=== PATIENT | male | born 1955 | race Hispanic/Latino ===

== ENCOUNTER 2017-05-14 00:22 | Inpatient (IN) | payer OTHER ==
[2017-05-14] MEDS ORDERED: NACL 0.9% 500 ML 500 ML IV ONE (01:52)
[2017-05-14] MEDS ORDERED: HEPARIN 10,000 UNITS/10 ML IV ONE ×2 (01:52→12:03)
[2017-05-14] MEDS ORDERED: SUBLIMAZE IV ONE (01:52)
--- NOTE | 2017-05-14 01:54 | Emergency Department Report ---
ED Lower Extremity HPI - General Chief Complaint: Extremity Injury, Lower Stated Complaint: NO PULSE LEFT LEG Time Seen by Provider: 05/14/17 01:30 Source: patient, family, EMS (ems notes not available at time of chart dictation), RN notes reviewed Mode of arrival: Stretcher Limitations: Physical Limitation - History of Present Illness Initial Comments: This is a 61-year-old male. The patient is previously known to this provider. Primary care DrAlex: Galindo Patient had a mechanical fall 3 weeks ago, and since then has not been walking around much. He has a left lower extremity immobilization boot. Presents to the ER with a complaint of left pain and swelling of the lower extremity. Was seen at an outpatient [place] clinic and sent to the ER to exclude arterial insufficiency. The pain is sharp and burning, increases with palpation and range of motion decreases with rest. Patient and son reports that his foot feels cool, he denies bladder or bowel retention or incontinence, he denies headache, neck pain, chest pain, abdominal pain, shortness of breath, hematemesis, bright red blood per rectum. MD Complaint: leg injury, ankle injury, fall -: Gradual Injury: Leg: Left, Knee: Left, Ankle: Left, Foot: Left, Toes: Left Type of Injury: other Place: home Severity: moderate Improves With: rest Worsens With: weight bearing, movement, palpation Context: fall, direct blow Associated Symptoms: swelling, unable to bear weight. denies: tingling - Related Data Home Medications Medication Instructions Recorded Confirmed Last Taken Gabapentin [Neurontin] 300 mg PO BID 05/14/17 05/14/17 Unknown Ibuprofen [Motrin 600 MG tab] 600 mg PO Q8H PRN 05/14/17 05/14/17 Unknown metFORMIN [Glucophage] 500 mg PO BID 05/14/17 05/14/17 Unknown Previous Rx's Medication Instructions Recorded Last Taken Type Apixaban [Eliquis] 5 mg PO BID #360 tablet 05/16/17 Unknown Rx Apixaban [Eliquis] 10 mg PO Q12HR #14 tablet 05/16/17 Unknown Rx Gabapentin [Neurontin] 300 mg PO BID #60 capsule 05/16/17 Unknown Rx Levofloxacin [Levaquin TAB] 500 mg PO QDAY #10 tablet 05/16/17 Unknown Rx metFORMIN [Glucophage] 500 mg PO BIDDIAB #60 tablet 05/16/17 Unknown Rx Allergies Allergy/AdvReac Type Severity Reaction Status Date / Time codeine Allergy Unknown Verified 05/14/17 00:42 ED Review of Systems ROS: Stated complaint: NO PULSE LEFT LEG Other details as noted in HPI Comment: All other systems reviewed and negative ED Past Medical Hx - Past Medical History Previous Medical History?: Yes Hx Hypertension: Yes Hx Diabetes: Yes - Social History Smoking Status: Never Smoker Substance Use Type: Alcohol - Medications Home Medications: Home Medications Medication Instructions Recorded Confirmed Last Taken Type Gabapentin [Neurontin] 300 mg PO BID 05/14/17 05/14/17 Unknown History Ibuprofen [Motrin 600 MG tab] 600 mg PO Q8H PRN 05/14/17 05/14/17 Unknown History metFORMIN [Glucophage] 500 mg PO BID 05/14/17 05/14/17 Unknown History Apixaban [Eliquis] 5 mg PO BID #360 tablet 05/16/17 Unknown Rx Apixaban [Eliquis] 10 mg PO Q12HR #14 tablet 05/16/17 Unknown Rx Gabapentin [Neurontin] 300 mg PO BID #60 capsule 05/16/17 Unknown Rx Levofloxacin [Levaquin TAB] 500 mg PO QDAY #10 tablet 05/16/17 Unknown Rx metFORMIN [Glucophage] 500 mg PO BIDDIAB #60 tablet 05/16/17 Unknown Rx ED Physical Exam - General Limitations: Physical Limitation General appearance: alert, in no apparent distress - Head Head exam: Present: atraumatic, normocephalic - Eye Eye exam: Present: normal appearance, EOMI. Absent: nystagmus - ENT ENT exam: Present: normal exam, normal orophraynx, mucous membranes moist, normal external ear exam - Neck Neck exam: Present: normal inspection, full ROM - Respiratory Respiratory exam: Present: normal lung sounds bilaterally. Absent: respiratory distress - Cardiovascular Cardiovascular Exam: Present: regular rate, normal rhythm, normal heart sounds. Absent: bradycardia, tachycardia, irregular rhythm, systolic murmur, diastolic murmur, rubs, gallop - GI/Abdominal GI/Abdominal exam: Present: soft, normal bowel sounds. Absent: distended, tenderness, guarding, rebound, rigid, pulsatile mass - Rectal Rectal exam: Present: deferred - Extremities Exam Extremities exam: Present: full ROM, tenderness (the left lower extremity is swollen and tender. The compartments are soft. There is mild pain with passive range of motion.), pedal edema, calf tenderness, other (2+ pulses noted in the bilateral upper and lower extremities. 2+ pulses noted in the left dorsalis pedis, left femoral distribution.). Absent: joint swelling - Back Exam Back exam: Present: normal inspection, full ROM. Absent: paraspinal tenderness , vertebral tenderness - Neurological Exam Neurological exam: Present: alert, oriented X3, CN II-XII intact, other ( Extraocular movements intact. Tongue midline. No facial droop. Facial sensation intact to light touch in the V1, V2, V3 distribution bilaterally. 5 and 5 strength in 4 extremities.. Sensation is intact to light touch in 4 extremities.). Absent: motor sensory deficit - Psychiatric Psychiatric exam: Present: normal affect, normal mood - Skin Skin exam: Present: warm, dry, intact, normal color. Absent: rash ED Course Vital Signs 05/14/17 05/14/17 05/14/17 00:51 01:00 02:00 Temperature 98 F Pulse Rate 98 H 95 H 95 H Respiratory 18 21 26 H Rate Blood Pressure 132/78 149/82 Blood Pressure 145/68 [Left] O2 Sat by Pulse 98 96 Oximetry 05/14/17 05/14/17 05/14/17 03:00 04:00 05:00 Temperature Pulse Rate 94 H 99 H 92 H Respiratory 12 16 23 Rate Blood Pressure 142/85 147/104 124/76 Blood Pressure [Left] O2 Sat by Pulse 98 92 95 Oximetry 05/14/17 05/14/17 05/14/17 07:32 07:51 08:00 Temperature 98.4 F Pulse Rate 95 H 91 H 98 H Respiratory 19 17 17 Rate Blood Pressure 138/68 131/74 Blood Pressure 113/74 [Left] O2 Sat by Pulse 94 95 95 Oximetry 05/14/17 05/14/17 05/14/17 08:11 09:03 09:11 Temperature Pulse Rate 93 H 89 100 H Respiratory 20 17 15 Rate Blood Pressure 131/74 131/74 131/74 Blood Pressure [Left] O2 Sat by Pulse 90 97 89 Oximetry 05/14/17 05/14/17 05/14/17 09:21 09:30 09:41 Temperature Pulse Rate 93 H 91 H 90 Respiratory 22 20 22 Rate Blood Pressure 131/74 117/61 131/74 Blood Pressure [Left] O2 Sat by Pulse 94 94 94 Oximetry 05/14/17 05/14/17 05/14/17 09:51 10:00 10:11 Temperature Pulse Rate 90 88 91 H Respiratory 15 17 18 Rate Blood Pressure 131/74 124/62 124/62 Blood Pressure [Left] O2 Sat by Pulse 94 94 94 Oximetry 05/14/17 05/14/17 05/14/17 10:21 10:30 10:41 Temperature Pulse Rate 92 H 95 H 93 H Respiratory 19 24 20 Rate Blood Pressure 124/62 123/59 123/59 Blood Pressure [Left] O2 Sat by Pulse 93 95 92 Oximetry 05/14/17 05/14/17 05/14/17 10:51 11:00 11:11 Temperature Pulse Rate 92 H 92 H 90 Respiratory 21 20 21 Rate Blood Pressure 123/59 121/64 121/64 Blood Pressure [Left] O2 Sat by Pulse 92 93 94 Oximetry 05/14/17 05/14/17 05/14/17 11:21 11:31 11:41 Temperature Pulse Rate 98 H 98 H 93 H Respiratory 18 20 19 Rate Blood Pressure 123/59 123/59 123/59 Blood Pressure [Left] O2 Sat by Pulse 95 96 94 Oximetry 05/14/17 05/14/17 05/14/17 11:51 12:00 12:11 Temperature Pulse Rate 102 H 94 H 95 H Respiratory 20 23 20 Rate Blood Pressure 123/59 131/69 131/69 Blood Pressure [Left] O2 Sat by Pulse 93 96 92 Oximetry 05/14/17 05/14/17 05/14/17 12:21 12:30 12:41 Temperature Pulse Rate 93 H 91 H 101 H Respiratory 22 18 21 Rate Blood Pressure 131/69 128/74 128/74 Blood Pressure [Left] O2 Sat by Pulse 95 96 94 Oximetry 05/14/17 05/14/17 05/14/17 12:51 13:01 13:11 Temperature Pulse Rate 99 H Respiratory 21 Rate Blood Pressure 128/74 126/67 126/67 Blood Pressure [Left] O2 Sat by Pulse 96 96 92 Oximetry 05/14/17 05/14/17 05/14/17 13:21 13:30 13:41 Temperature Pulse Rate 99 H 103 H 100 H Respiratory 20 18 17 Rate Blood Pressure 126/67 126/77 126/77 Blood Pressure [Left] O2 Sat by Pulse 92 94 Oximetry 04/03/18 04/03/18 04/03/18 13:51 14:00 14:11 Temperature Pulse Rate 95 H 94 H 96 H Respiratory 20 19 20 Rate Blood Pressure 126/77 126/77 139/72 Blood Pressure [Left] O2 Sat by Pulse Oximetry 05/14/17 05/14/17 05/14/17 14:21 14:30 14:41 Temperature Pulse Rate 92 H 95 H 94 H Respiratory 20 23 20 Rate Blood Pressure 139/72 130/74 130/74 Blood Pressure [Left] O2 Sat by Pulse Oximetry 05/14/17 05/14/17 05/14/17 14:51 15:00 15:11 Temperature Pulse Rate 93 H 93 H 94 H Respiratory 16 19 20 Rate Blood Pressure 130/74 137/75 137/75 Blood Pressure [Left] O2 Sat by Pulse Oximetry 05/14/17 05/14/17 05/14/17 15:21 15:30 15:40 Temperature Pulse Rate 93 H 92 H 91 H Respiratory 19 19 20 Rate Blood Pressure 137/75 126/71 126/71 Blood Pressure [Left] O2 Sat by Pulse Oximetry 05/14/17 05/14/17 05/14/17 15:50 16:00 16:10 Temperature Pulse Rate 96 H 90 92 H Respiratory 21 19 38 H Rate Blood Pressure 139/68 126/71 Blood Pressure [Left] O2 Sat by Pulse Oximetry 05/14/17 16:20 Temperature Pulse Rate 93 H Respiratory 16 Rate Blood Pressure 126/71 Blood Pressure [Left] O2 Sat by Pulse Oximetry - Reevaluation(s) Reevaluation #1: 05/14/17 03:51 Differential diagnosis, including but not limited to, DVT, Albert's cyst, compartment syndrome, myositis Assessment and plan: 61-year-old male with left lower extremity pain and swelling, pulses are appreciated on my physical exam as well as through Doppler interrogation. Given recent history of fall, and mobility, boot, I highly suspect a DVT. In addition, the patient may have an extensive clot burden including the iliac veins and possibly part of the IVC. He has no contraindication to anticoagulation. He has verbally consented to systemic anticoagulation. Risks , benefits, alternatives have been discussed. Has no chest pain or shortness of breath. Patient arrived after 5:00 PM, and we are therefore unable to obtain lower extremity DVT study. CT scan of the abdomen and pelvis is pending with left lower extremity runoff. I have discussed this with Dr. Bishop the [place] physician on-call, and she does authorized the patient to be admitted to this hospital if he requires it. Reevaluation #2: 05/14/17 05:45 Care is transferred to the oncoming ER physician, Dr. West Springer to follow up on CT scans. A lower extremity DVT study has also been ordered. Disposition as per imaging, at this point time, would admit patient to the hospital once initial diagnostics have resulted. ED Lower Extremity MDM - Lab Data Result diagrams: 05/16/17 10:18 05/16/17 10:18 Vital Signs 05/14/17 05/14/17 05/14/17 00:51 01:00 02:00 Temperature 98 F Pulse Rate 98 H 95 H 95 H Respiratory 18 21 26 H Rate Blood Pressure 132/78 149/82 Blood Pressure 145/68 [Left] O2 Sat by Pulse 98 96 Oximetry 05/14/17 05/14/17 03:00 04:00 Temperature Pulse Rate 94 H 99 H Respiratory 12 16 Rate Blood Pressure 142/85 147/104 Blood Pressure [Left] O2 Sat by Pulse 98 92 Oximetry Lab Results 05/14/17 05/14/17 05/14/17 Range/Units 02:02 02:02 02:02 WBC 16.4 H (4.5-11.0) K/mm3 RBC 3.81 (3.65-5.03) M/mm3 Hgb 10.3 L (11.8-15.2) gm/dl Hct 31.5 L (35.5-45.6) % MCV 83 L (84-94) fl MCH 27 L (28-32) pg MCHC 33 (32-34) % RDW 16.1 H (13.2-15.2) % Plt Count 602 H (140-440) K/mm3 Lymph % (Auto) 9.0 L (13.4-35.0) % [place] % (Auto) 7.2 (0.0-7.3) % Eos % (Auto) 0.1 (0.0-4.3) % Baso % (Auto) 0.6 (0.0-1.8) % Lymph # 1.5 (1.2-5.4) K/mm3 [place] # 1.2 H (0.0-0.8) K/mm3 Eos # 0.0 (0.0-0.4) K/mm3 Baso # 0.1 (0.0-0.1) K/mm3 Seg Neutrophils % 83.1 H (40.0-70.0) % Seg Neutrophils # 13.6 H (1.8-7.7) K/mm3 PT 14.5 (12.2-14.9) Sec. INR 1.07 (0.87-1.13) APTT 33.9 (24.2-36.6) Sec. D-Dimer 3031.44 H (0-234) ng/mlDDU Sodium (137-145) mmol/L Potassium (3.6-5.0) mmol/L Chloride (98-107) mmol/L Carbon Dioxide (22-30) mmol/L Anion Gap mmol/L BUN (9-20) mg/dL Creatinine (0.8-1.5) mg/dL Estimated GFR ml/min BUN/Creatinine Ratio % Glucose (75-100) mg/dL Lactic Acid 1.90 (0.7-2.0) mmol/L Calcium (8.4-10.2) mg/dL Total Bilirubin (0.1-1.2) mg/dL AST (5-40) units/L ALT (7-56) units/L Alkaline Phosphatase (35-129) units/L Total Creatine Kinase (55-170) units/L Total Protein (6.3-8.2) g/dL Albumin (3.9-5) g/dL Albumin/Globulin Ratio % 05/14/ Range/Units 02:02 WBC (4.5-11.0) K/mm3 RBC (3.65-5.03) M/mm3 Hgb (11.8-15.2) gm/dl Hct (35.5-45.6) % MCV (84-94) fl MCH (28-32) pg MCHC (32-34) % RDW (13.2-15.2) % Plt Count (140-440) K/mm3 Lymph % (Auto) (13.4-35.0) % [place] % (Auto) (0.0-7.3) % Eos % (Auto) (0.0-4.3) % Baso % (Auto) (0.0-1.8) % Lymph # (1.2-5.4) K/mm3 [place] # (0.0-0.8) K/mm3 Eos # (0.0-0.4) K/mm3 Baso # (0.0-0.1) K/mm3 Seg Neutrophils % (40.0-70.0) % Seg Neutrophils # (1.8-7.7) K/mm3 PT (12.2-14.9) Sec. INR (0.87-1.13) APTT (24.2-36.6) Sec. D-Dimer (0-234) ng/mlDDU Sodium 130 L (137-145) mmol/L Potassium 4.8 (3.6-5.0) mmol/L Chloride 88.7 L (98-107) mmol/L Carbon Dioxide 23 (22-30) mmol/L Anion Gap 23 mmol/L BUN 18 (9-20) mg/dL Creatinine 0.6 L (0.8-1.5) mg/dL Estimated GFR > 60 ml/min BUN/Creatinine Ratio 30 % Glucose 164 H (75-100) mg/dL Lactic Acid (0.7-2.0) mmol/L Calcium 8.5 (8.4-10.2) mg/dL Total Bilirubin 0.60 (0.1-1.2) mg/dL AST 45 H (5-40) units/L ALT 62 H (7-56) units/L Alkaline Phosphatase 164 H (35-129) units/L Total Creatine Kinase 324 H (55-170) units/L Total Protein 7.4 (6.3-8.2) g/dL Albumin 2.7 L (3.9-5) g/dL Albumin/Globulin Ratio 0.6 % - Radiology Data Radiology results: report reviewed, image reviewed X-ray of the left femur, left knee, left tibia/fibula show no fracture or dislocation, soft tissue swelling is noted. Critical care attestation.: If time is entered above; I have spent that time in minutes in the direct care of this critically ill patient, excluding procedure time. ED Disposition Clinical Impression: Left leg pain, Inability to ambulate due to multiple joints Disposition: OP ADMIT IP TO THIS HOSP Is pt being admited?: Yes Condition: Stable
[2017-05-14 02:29] LABS: Basophils # (Auto) 0.1 K/mm3 (0.0-0.1); Basophils % (Auto) 0.6 % (0.0-1.8); Eosinophils % (Auto) 0.1 % (0.0-4.3); Hematocrit 31.5 % (35.5-45.6); Hemoglobin 10.3 gm/dl (11.8-15.2); Lymphocytes # (Auto) 1.5 K/mm3 (1.2-5.4); Mean Corpuscular HGB Conc 33 % (32-34); Mean Corpuscular Hemoglobin 27 pg (28-32); Mean Corpuscular Volume 83 fl (84-94); Monocytes # (Auto) 1.2 K/mm3 (0.0-0.8); Monocytes % (Auto) 7.2 % (0.0-7.3); Platelet Count 602 K/mm3 (140-440); Red Blood Count 3.81 M/mm3 (3.65-5.03); Red Cell Distribution Width 16.1 % (13.2-15.2)
[2017-05-14 02:45] LABS: INR 1.07 (0.87-1.13)
[2017-05-14 03:01] LABS: Partial Thromboplastin Time 33.9 Sec. (24.2-36.6)
--- NOTE | 2017-05-14 03:12 | XRay Report ---
FINAL REPORT PROCEDURE: XR TIBIA FIBULA 1V LT TECHNIQUE: LEFT tibia and fibula radiographs, AP and lateral views. CPT 90627 HISTORY: left leg pain COMPARISON: No prior studies are available for comparison. FINDINGS: Fracture (s) and/or Dislocation(s): None . 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 Soft tissues: There is generalized soft tissue swelling.. Bone mineralization: Normal . Foreign bodies: None . IMPRESSION: There is no acute bony abnormality.. 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 There is generalized soft tissue swelling..
--- NOTE | 2017-05-14 03:34 | XRay Report ---
FINAL REPORT PROCEDURE: XR FEMUR 1V LT TECHNIQUE: LEFT femur radiographs, AP and lateral views. HISTORY: left leg pain COMPARISON: No prior studies are available for comparison. FINDINGS: Fracture (s) and/or Dislocation(s): None . Joint space(s): There is degenerative arthrosis of the knee and hip joints.. Soft tissues: Normal . Bone mineralization: Normal . Foreign bodies: None . IMPRESSION: There is no fracture.
[2017-05-14 04:05] LABS: Alanine Aminotransferase 62 units/L (7-56); Albumin 2.7 g/dL (3.9-5); BUN/Creatinine Ratio 30; Blood Urea Nitrogen 18 mg/dL (9-20); Calcium 8.5 mg/dL (8.4-10.2); Hemolysis Index 19
[2017-05-14] MEDS ORDERED: HEPARIN/ 0.45% NACL-25,000 UNIT/500 ML 25,000 UNIT/500 ML BAG IV SCH (05:00)
[2017-05-14] MEDS ORDERED: DILAUDID IV ONE (05:00)
[2017-05-14] MEDS ORDERED: NACL ONE (06:35)
--- NOTE | 2017-05-14 06:49 | Cat Scan Report ---
FINAL REPORT PROCEDURE: CT ABDOMEN PELVIS W CON TECHNIQUE: Computerized axial tomography of the abdomen and pelvis was performed after the IV injection of iodinated nonionic contrast. HISTORY: lle pain and swelling, ? ivc thrombosis COMPARISON: No prior studies are available for comparison. FINDINGS: Visualized lower thorax: There is atelectasis at the lung bases.. Liver: Normal size and attenuation. Spleen: Normal size and attenuation. Gallbladder and biliary system: Normal. Pancreas: Normal. Adrenals: Normal. Kidneys: Normal. GI tract: There is moderate stool in the colon. There is no obstruction, fecal impaction or colitis. The stomach, small bowel and appendix are normal.. Lymph nodes and mesentery: Normal. Vasculature: There is calcified plaque in the abdominal aorta. There is no aneurysm.. Bladder: Normal. Reproductive organs: Normal. Peritoneum: There is no ascites, free air, abscess or adenopathy.. Musculoskeletal structures: No significant abnormality. Other: There is no specific evidence of IVC thrombosis.. IMPRESSION: There is moderate stool in the colon. There is no obstruction, fecal impaction or colitis. The stomach, small bowel and appendix are normal.. There is calcified plaque in the abdominal aorta. There is no aneurysm.. There is no ascites, free air, abscess or adenopathy.. There is no specific evidence of IVC thrombosis..
--- NOTE | 2017-05-14 07:08 | Cat Scan Report ---
FINAL REPORT PROCEDURE: CT LOWER EXTREMITY LT W CON TECHNIQUE: Computerized axial tomography of the LEFT leg was performed after the IV injection of iodinated nonionic contrast. HISTORY: pain swelling ? dvt COMPARISON: No prior studies are available for comparison. FINDINGS: Bony structures including marrow spaces: Normal. Neurovascular structures: The arteries are patent and normal in caliber. The deep venous structures are patent. There is superficial thrombophlebitis in the medial calf. Soft tissues: There is a subcutaneous edema of the leg consistent with cellulitis. There is no mass or abscess. Joint space: Normal. Abnormal enhancement: None. IMPRESSION: There is no acute bony abnormality. The arteries are patent and normal in caliber. The deep venous structures are patent. There is superficial thrombophlebitis in the medial calf. There is a subcutaneous edema of the leg consistent with cellulitis. There is no mass or abscess.
[2017-05-14] MEDS ORDERED: SODIUM CHLORIDE FLUSH SYRINGE 10 ML IV PRN (12:48)
[2017-05-14] MEDS ORDERED: D50W (25GM) Syringe IV PRN (12:48)
[2017-05-14] MEDS ORDERED: ZOFRAN IV PRN (12:48)
[2017-05-14] MEDS ORDERED: VANCOMYCIN VIAL IV ONE (12:48)
--- NOTE | 2017-05-14 12:58 | History and Physical Report ---
History of Present Illness Date of examination: 05/14/17 Date of admission: 05/14/17 Chief complaint: Extremity Injury, Lower History of present illness: Patient had a mechanical fall 3 weeks ago, and since then has not been walking around much. He had a left lower extremity immobilization boot. Pt. presents to the ER with a complaint of left pain and swelling of the lower extremity. He was seen at an outpatient [place] [facility] and sent to the ER to exclude arterial insufficiency. The pain is sharp and burning, increases with palpation and range of motion decreases with rest. Patient and son reports, per ER physician, that his foot feels cool. He denies bladder or bowel retention or incontinence, he denies headache, neck pain, chest pain, abdominal pain, shortness of breath, hematemesis, bright red blood per rectum. Past History Past Medical History: diabetes, hypertension Past Surgical History: No surgical history Social history: no significant social history Family history: no significant family history Medications and Allergies Allergies Allergy/AdvReac Type Severity Reaction Status Date / Time codeine Allergy Unknown Verified 05/14/17 00:42 Home Medications Medication Instructions Recorded Confirmed Last Taken Type Gabapentin [Neurontin] 300 mg PO BID 05/14/17 05/14/17 Unknown History Ibuprofen [Motrin] 600 mg PO Q8H PRN 05/14/17 05/14/17 Unknown History metFORMIN [Glucophage] 500 mg PO BID 05/14/17 05/14/17 Unknown History Active Meds: Active Medications Acetaminophen (Tylenol) 650 mg PO Q4H PRN PRN Reason: Pain MILD(1-3)/Fever >100.5/DEE Dextrose (D50w (25gm) Syringe) 50 ml IV PRN PRN PRN Reason: Hypoglycemia Sodium Chloride (Nacl 0.9% 1000 Ml) 1,000 mls @ 75 mls/hr IV DIRECT MOR Piperacillin Sod/Tazobactam Sod (Zosyn/Ns 4.5gm/100ml) 4.5 gm in 100 mls @ 200 mls/hr IV Q8HR MOR; Protocol Ondansetron HCl (Zofran) 4 mg IV Q8H PRN PRN Reason: Nausea And Vomiting Sodium Chloride (Sodium Chloride Flush Syringe 10 Ml) 10 ml IV BID MOR Sodium Chloride (Sodium Chloride Flush Syringe 10 Ml) 10 ml IV PRN PRN PRN Reason: LINE FLUSH Vancomycin HCl (Vancomycin Pharmacy To Dose) 1 each IV PKCONSULT MOR Vancomycin HCl (Vancomycin Vial) 2,000 mg 20 mg/kg (2000 mg) IV ONCE ONE; Protocol Stop: 05/14/17 12:49 Review of Systems All systems: negative Exam - Constitutional Vitals: Temp Pulse Resp BP Pulse Ox 98.4 F 95 H 19 113/74 94 05/14/17 07:32 05/14/17 07:32 05/14/17 07:32 05/14/17 07:32 05/14/17 07:32 General appearance: Present: no acute distress, well-nourished - EENT Eyes: Present: PERRL ENT: hearing intact, clear oral mucosa - Neck Neck: Present: supple, normal ROM - Respiratory Respiratory effort: normal Respiratory: bilateral: CTA - Cardiovascular Heart Sounds: Present: S1 & S2. Absent: rub, click - Extremities Extremities: pulses symmetrical Extremity abnormal: edema (Left lower edematous and dorsum of left foot erythematous) Peripheral Pulses: within normal limits - Abdominal General gastrointestinal: Present: soft, non-tender, non-distended, normal bowel sounds Male genitourinary: Present: normal - Integumentary Integumentary: Present: clear, warm, dry - Musculoskeletal Musculoskeletal: gait normal, strength equal bilaterally - Psychiatric Psychiatric: appropriate mood/affect, intact judgment & insight - Neurologic Neurologic: CNII-XII intact, moves all extremities Results - Labs CBC & Chem 7: 05/14/17 02:02 05/14/17 02:02 Labs: Laboratory Last Values WBC 16.4 K/mm3 (4.5-11.0) H 05/14/17 02:02 RBC 3.81 M/mm3 (3.65-5.03) 05/14/17 02:02 Hgb 10.3 gm/dl (11.8-15.2) L 05/14/17 02:02 Hct 31.5 % (35.5-45.6) L 05/14/17 02:02 MCV 83 fl (84-94) L 05/14/17 02:02 MCH 27 pg (28-32) L 05/14/17 02:02 MCHC 33 % (32-34) 05/14/17 02:02 RDW 16.1 % (13.2-15.2) H 05/14/17 02:02 Plt Count 602 K/mm3 (140-440) H 05/14/17 02:02 Lymph % (Auto) 9.0 % (13.4-35.0) L 05/14/17 02:02 [place] % (Auto) 7.2 % (0.0-7.3) 05/14/17 02:02 Eos % (Auto) 0.1 % (0.0-4.3) 05/14/17 02:02 Baso % (Auto) 0.6 % (0.0-1.8) 05/14/17 02:02 Lymph # 1.5 K/mm3 (1.2-5.4) 05/14/17 02:02 [place] # 1.2 K/mm3 (0.0-0.8) H 05/14/17 02:02 Eos # 0.0 K/mm3 (0.0-0.4) 05/14/17 02:02 Baso # 0.1 K/mm3 (0.0-0.1) 05/14/17 02:02 Seg Neutrophils % 83.1 % (40.0-70.0) H 05/14/17 02:02 Seg Neutrophils # 13.6 K/mm3 (1.8-7.7) H 05/14/17 02:02 PT 14.5 Sec. (12.2-14.9) 05/14/17 02:02 INR 1.07 (0.87-1.13) 05/14/17 02:02 APTT 33.9 Sec. (24.2-36.6) 05/14/17 02:02 D-Dimer 3031.44 ng/mlDDU (0-234) H 05/14/17 02:02 Heparin Anti-Xa Level < 0.10 U.I./ml (0.3-0.7) L 05/14/17 10:46 Sodium 130 mmol/L (137-145) L 05/14/17 02:02 Potassium 4.8 mmol/L (3.6-5.0) 05/14/17 02:02 Chloride 88.7 mmol/L (98-107) L 05/14/17 02:02 Carbon Dioxide 23 mmol/L (22-30) 05/14/17 02:02 Anion Gap 23 mmol/L 04/03/18 02:02 BUN 18 mg/dL (9-20) 05/14/17 02:02 Creatinine 0.6 mg/dL (0.8-1.5) L 05/14/17 02:02 Estimated GFR > 60 ml/min 05/14/17 02:02 BUN/Creatinine Ratio 30 % 05/14/17 02:02 Glucose 164 mg/dL (75-100) H 05/14/17 02:02 Lactic Acid 1.90 mmol/L (0.7-2.0) 05/14/17 02:02 Calcium 8.5 mg/dL (8.4-10.2) 05/14/17 02:02 Total Bilirubin 0.60 mg/dL (0.1-1.2) 05/14/17 02:02 AST 45 units/L (5-40) H 05/14/17 02:02 ALT 62 units/L (7-56) H 05/14/17 02:02 Alkaline Phosphatase 164 units/L (35-129) H 05/14/17 02:02 Total Creatine Kinase 324 units/L (55-170) H 05/14/17 02:02 Total Protein 7.4 g/dL (6.3-8.2) 05/14/17 02:02 Albumin 2.7 g/dL (3.9-5) L 05/14/17 02:02 Albumin/Globulin Ratio 0.6 % 05/14/17 02:02 Assessment and Plan Assessment and plan: Sepsis. Present on admission. Continue IV antibiotics and follow-up cultures. Etiology secondary to left lower extremity cellulitis. Left lower extremity cellulitis. As above. Consider ID consultation. Left lower extremity superficial thrombophlebitis. Continue supportive care. DVT prophylaxis. Lovenox daily. Diabetes mellitus type 2. Continue Accu-Cheks and sliding scale insulin. Hypertension. Resume anti-hypertensive medications. Morbid obesity. Patient will be counseled on diet and exercise.
[2017-05-14] MEDS ORDERED: VANCOMYCIN PHARMACY TO DOSE IV SCH (13:00)
[2017-05-14] MEDS ORDERED: VANCOMYCIN 1,750 MG in NACL 0.9% 500 ML 500 ML IV ONE (14:00)
[2017-05-14] MEDS ORDERED: VANCOMYCIN 2,000 MG in NACL 0.9% 500 ML 500 ML IV ONE (14:00)
[2017-05-14] MEDS ORDERED: HumuLIN R ONE (16:18)
[2017-05-14] MEDS: HumuLIN R SUB-Q SCH ×2 (16:24→23:28)
[2017-05-14] MEDS: NACL 0.9% 1000 ML 1,000 ML IV SCH (17:01)
[2017-05-14] MEDS: TYLENOL PO PRN (17:32)
[2017-05-14] MEDS: ZOSYN/NS 4.5GM/100ML 4.5 GM/100 ML VIAL IV SCH (22:50)
[2017-05-15] MEDS: SODIUM CHLORIDE FLUSH SYRINGE 10 ML IV SCH ×3 (01:50→23:00)
[2017-05-15] MEDS: ZOSYN/NS 4.5GM/100ML 4.5 GM/100 ML VIAL IV SCH ×4 (01:52→14:09)
[2017-05-15] MEDS: MORPHINE IV PRN ×4 (01:54→19:03)
[2017-05-15] MEDS ORDERED: VANCOMYCIN 1,250 MG in NACL 0.9% 250ML 250 ML IV SCH (02:00)
[2017-05-15] MEDS ORDERED: VANCOMYCIN 1,500 MG in NACL 0.9% 500 ML 500 ML IV SCH (02:00)
[2017-05-15 05:26] LABS: Basophils % (Auto) 0.3 % (0.0-1.8); Eosinophils % (Auto) 0.3 % (0.0-4.3); Hematocrit 28.5 % (35.5-45.6); Hemoglobin 9.6 gm/dl (11.8-15.2); Lymphocytes # (Auto) 1.5 K/mm3 (1.2-5.4); Lymphocytes % (Auto) 8.8 % (13.4-35.0); Mean Corpuscular HGB Conc 34 % (32-34); Mean Corpuscular Hemoglobin 27 pg (28-32); Mean Corpuscular Volume 81 fl (84-94); Monocytes # (Auto) 1.1 K/mm3 (0.0-0.8); Monocytes % (Auto) 6.5 % (0.0-7.3); Platelet Count 596 K/mm3 (140-440); Red Blood Count 3.52 M/mm3 (3.65-5.03); Red Cell Distribution Width 16.1 % (13.2-15.2)
[2017-05-15 05:35] LABS: BUN/Creatinine Ratio 22; Blood Urea Nitrogen 11 mg/dL (9-20); Calcium 8.7 mg/dL (8.4-10.2); Hemolysis Index 11
[2017-05-15] MEDS: HumuLIN R SUB-Q SCH ×4 (09:12→22:58)
[2017-05-15] MEDS: NACL 0.9% 1000 ML 1,000 ML IV SCH (09:39)
[2017-05-15] MEDS ORDERED: LOVENOX SUB-Q SCH ×2 (10:00)
--- NOTE | 2017-05-15 10:41 | Progress Note ---
Assessment and Plan Assessment and plan: Sepsis. Present on admission. Continue IV antibiotics and follow-up cultures. Etiology secondary to left lower extremity cellulitis. Left lower extremity cellulitis. As above. Erythema and edema have almost completely resolved. Left lower extremity superficial thrombophlebitis. Continue supportive care. Right upper sternal swelling. Patient reports recent trauma with the fall and an evaluation at [facility] with a CT scan that was found to be negative. Check ultrasound rule out DVT. DVT prophylaxis. Lovenox daily. Diabetes mellitus type 2. Continue Accu-Cheks and sliding scale insulin. Hypertension. Resume anti-hypertensive medications. Morbid obesity. Patient will be counseled on diet and exercise. Disposition. Anticipate discharge in a.m. if blood cultures are negative. History Interval history: No new issues overnight. Patient complains of right upper extremity pain from previous trauma that was evaluated at [facility] with a CT scan that was found to be negative per patient. Hospitalist Physical - Constitutional Vitals: Temp Pulse Resp BP Pulse Ox 98.5 F 84 20 115/62 92 05/15/17 08:40 05/15/17 08:40 05/15/17 08:40 05/15/17 08:40 05/15/17 08:40 General appearance: Present: no acute distress, well-nourished - EENT Eyes: Present: PERRL, EOM intact ENT: hearing intact, clear oral mucosa, dentition normal - Neck Neck: Present: supple, normal ROM - Respiratory Respiratory effort: normal Respiratory: bilateral: CTA - Cardiovascular Rhythm: regular Heart Sounds: Present: S1 & S2. Absent: gallop, rub - Extremities Extremities: no ischemia, Full ROM Extremity abnormal: edema (right upper extremity, left lower extremity resolving ), erythema (dorsum left foot resolved) - Abdominal General gastrointestinal: soft, non-tender, non-distended, normal bowel sounds - Integumentary Integumentary: Present: clear, warm, dry - Neurologic Neurologic: CNII-XII intact, moves all extremities Results - Labs CBC & Chem 7: 05/15/17 04:47 05/15/17 04:47 Labs: Laboratory Last Values WBC 17.3 K/mm3 (4.5-11.0) H 05/15/17 04:47 RBC 3.52 M/mm3 (3.65-5.03) L 05/15/17 04:47 Hgb 9.6 gm/dl (11.8-15.2) L 05/15/17 04:47 Hct 28.5 % (35.5-45.6) L 05/15/17 04:47 MCV 81 fl (84-94) L 05/15/17 04:47 MCH 27 pg (28-32) L 05/15/17 04:47 MCHC 34 % (32-34) 05/15/17 04:47 RDW 16.1 % (13.2-15.2) H 05/15/17 04:47 Plt Count 596 K/mm3 (140-440) H 05/15/17 04:47 Lymph % (Auto) 8.8 % (13.4-35.0) L 05/15/17 04:47 [place] % (Auto) 6.5 % (0.0-7.3) 05/15/17 04:47 Eos % (Auto) 0.3 % (0.0-4.3) 05/15/17 04:47 Baso % (Auto) 0.3 % (0.0-1.8) 05/15/17 04:47 Lymph # 1.5 K/mm3 (1.2-5.4) 05/15/17 04:47 [place] # 1.1 K/mm3 (0.0-0.8) H 05/15/17 04:47 Eos # 0.0 K/mm3 (0.0-0.4) 05/15/17 04:47 Baso # 0.0 K/mm3 (0.0-0.1) 05/15/17 04:47 Seg Neutrophils % 84.1 % (40.0-70.0) H 05/15/17 04:47 Seg Neutrophils # 14.6 K/mm3 (1.8-7.7) H 05/15/17 04:47 PT 14.5 Sec. (12.2-14.9) 05/14/17 02:02 INR 1.07 (0.87-1.13) 05/14/17 02:02 APTT 33.9 Sec. (24.2-36.6) 05/14/17 02:02 D-Dimer 3031.44 ng/mlDDU (0-234) H 05/14/17 02:02 Heparin Anti-Xa Level < 0.10 U.I./ml (0.3-0.7) L 05/14/17 17:58 Sodium 132 mmol/L (137-145) L 05/15/17 04:47 Potassium 3.9 mmol/L (3.6-5.0) 05/15/17 04:47 Chloride 91.6 mmol/L (98-107) L 05/15/17 04:47 Carbon Dioxide 28 mmol/L (22-30) 05/15/17 04:47 Anion Gap 16 mmol/L 05/15/17 04:47 BUN 11 mg/dL (9-20) 05/15/17 04:47 Creatinine 0.5 mg/dL (0.8-1.5) L 05/15/17 04:47 Estimated GFR > 60 ml/min 05/15/17 04:47 BUN/Creatinine Ratio 22 % 05/15/17 04:47 Glucose 145 mg/dL (75-100) H 05/15/17 04:47 POC Glucose 158 (70-105) H 05/15/17 06:06 Lactic Acid 1.90 mmol/L (0.7-2.0) 05/14/17 02:02 Calcium 8.7 mg/dL (8.4-10.2) 05/15/17 04:47 Total Bilirubin 0.60 mg/dL (0.1-1.2) 05/14/17 02:02 AST 45 units/L (5-40) H 05/14/17 02:02 ALT 62 units/L (7-56) H 05/14/17 02:02 Alkaline Phosphatase 164 units/L (35-129) H 05/14/17 02:02 Total Creatine Kinase 324 units/L (55-170) H 05/14/17 02:02 Total Protein 7.4 g/dL (6.3-8.2) 05/14/17 02:02 Albumin 2.7 g/dL (3.9-5) L 05/14/17 02:02 Albumin/Globulin Ratio 0.6 % 05/14/17 02:02 Blood Type O POSITIVE 05/14/17 13:29 Antibody Screen Negative 05/14/17 13:29
[2017-05-15] MEDS: TYLENOL PO PRN (11:43)
[2017-05-15] MEDS: VANCOMYCIN 1,500 MG in NACL 0.9% 500 ML 500 ML IV SCH (15:23)
--- NOTE | 2017-05-15 17:50 | Vascular Lab Report ---
LOWER EXTREMITY VENOUS DUPLEX: REASON FOR EXAM: Pain and swelling of the lower extremities. COMMENTS ON THE RIGHT: All veins visualized are freely compressible without evidence of internal echogenicity. Flow is spontaneous and phasic throughout. COMMENTS ON THE LEFT: Acute deep venous thrombosis is seen in the paramedial veins in the calf. The remaining veins visualized are freely compressible without evidence of internal echogenicity. Spontaneous and phasic flow is present proximally. IMPRESSION: Acute deep venous thrombosis involving the left peroneal veins in the calf. No evidence of acute or chronic deep venous thrombosis in the right lower extremity.
--- NOTE | 2017-05-15 18:08 | Vascular Lab Report ---
RIGHT UPPER EXTREMITY VENOUS DUPLEX: REASON FOR EXAM: Pain and swelling of the right upper extremity COMMENTS ON THE RIGHT: All arm veins visualized are freely compressible without evidence of internal echogenicity. The subclavian and internal jugular veins are free of thrombus. Flow is spontaneous and phasic throughout. COMMENTS ON THE LEFT: A limited study of the jugular and subclavian veins shows no evidence of thrombus. IMPRESSION: No evidence of acute or chronic deep venous thrombosis in the right upper extremity.
[2017-05-15] MEDS: NEURONTIN PO SCH (22:58)
[2017-05-16] MEDS: VANCOMYCIN 1,500 MG in NACL 0.9% 500 ML 500 ML IV SCH ×2 (01:34→13:00)
[2017-05-16] MEDS: MORPHINE IV PRN ×4 (01:40→21:52)
[2017-05-16] MEDS: ZOSYN/NS 4.5GM/100ML 4.5 GM/100 ML VIAL IV SCH ×4 (06:03→21:53)
--- NOTE | 2017-05-16 08:09 | Discharge Summary ---
Providers - Providers Date of Admission: 05/14/17 12:48 Date of discharge: 05/17/17 Attending physician: OBEY KOVACS 05/14/17 19:58 Consult to Wound/ET Nurse [CONS] Routine Reason For Exam: wound eval 05/15/17 12:04 Physical Therapy Evaluation and Treat [CONS] Routine Comment: Reason For Exam: S/P fall with edema and superficial DVT/cellulitis Primary care physician: JULIEN BOYCE Hospitalization Reason for admission: leg pain Condition: Stable Hospital course: Patient had a mechanical fall 3 weeks ago, and since then has not been walking around much. He had a left lower extremity immobilization boot. Pt. presented to the ER with a complaint of leg pain and swelling of the lower extremity. He was seen at an outpatient [facility] and sent to the ER to exclude arterial insufficiency. This was evaluated with Doppler ultrasound and CT scan of the lower extremity which showed superficial thrombophlebitis/isolated distal thrombosis as well as cellulitis. Patient was initially treated with heparin which was later discontinued given that this was not a deep vein thrombosis. However, I've chosen to treat the patient with anticoagulation at discharge given the elevated d-dimer, obesity and relative immobilization. Patient also discharged with antibiotics. Dedicated discharge time 32 minutes. Disposition: DC-01 TO HOME OR SELFCARE Time spent for discharge: 32 - Discharge Diagnoses (1) Thrombophlebitis Status: Acute (2) Cellulitis Status: Acute Core Measure Documentation - Palliative Care Palliative Care/ Comfort Measures: Not Applicable - Core Measures Any of the following diagnoses?: none Exam - Constitutional Vitals: Temp Pulse Resp BP Pulse Ox 99.1 F 86 18 118/67 93 05/16/17 04:14 05/16/17 04:14 05/16/17 04:14 05/16/17 04:14 05/16/17 04:14 General appearance: Present: no acute distress, well-nourished - EENT Eyes: Present: PERRL ENT: hearing intact, clear oral mucosa - Neck Neck: Present: supple, normal ROM - Respiratory Respiratory effort: normal Respiratory: bilateral: CTA - Cardiovascular Heart Sounds: Present: S1 & S2. Absent: rub, click - Extremities Extremities: pulses symmetrical, No edema Peripheral Pulses: within normal limits - Abdominal General gastrointestinal: Present: soft, non-tender, non-distended, normal bowel sounds Male genitourinary: Present: normal - Integumentary Integumentary: Present: clear, warm, dry - Musculoskeletal Musculoskeletal: gait normal, strength equal bilaterally - Psychiatric Psychiatric: appropriate mood/affect, intact judgment & insight - Neurologic Neurologic: CNII-XII intact, moves all extremities Plan Follow up with: JULIEN BOYCE MD [Primary Care Provider] - 3-5 Days Prescriptions: Apixaban [Eliquis] 10 mg PO Q12HR #14 tablet Apixaban [Eliquis] 5 mg PO BID #360 tablet Gabapentin [Neurontin] 300 mg PO BID #60 capsule Levofloxacin [Levaquin TAB] 500 mg PO QDAY #10 tablet metFORMIN [Glucophage] 500 mg PO BIDDIAB #60 tablet
[2017-05-16] MEDS: HumuLIN R SUB-Q SCH ×3 (08:15→18:15)
[2017-05-16] MEDS: NEURONTIN PO SCH ×2 (09:39→21:53)
[2017-05-16] MEDS: GLUCOPHAGE PO SCH ×2 (09:39→18:16)
[2017-05-16] MEDS: ELIQUIS PO SCH ×2 (09:39→21:53)
[2017-05-16] MEDS: SODIUM CHLORIDE FLUSH SYRINGE 10 ML IV SCH ×2 (09:43→21:54)
--- NOTE | 2017-05-16 11:16 | Progress Note ---
Assessment and Plan Assessment and plan: Sepsis. Present on admission. Resolving. Continue IV antibiotics and follow- up cultures. Etiology secondary to left lower extremity cellulitis. Left lower extremity cellulitis. As above. Erythema and edema have almost completely resolved. Left lower extremity superficial thrombophlebitis/isolated distal venous thrombosis/perineal vein thrombosis. We'll opt to treat patient given his obesity and immobility. Eliquis BID Right upper sternal swelling. Ultrasound negative DVT prophylaxis. on Eliquis Diabetes mellitus type 2. Continue Accu-Cheks and sliding scale insulin. Hypertension. Resume anti-hypertensive medications. Morbid obesity. Patient will be counseled on diet and exercise. Disposition. Anticipate discharge in a.m. if blood cultures are negative. - Patient Problems (1) Thrombophlebitis Current Visit: Yes Status: Acute (2) Cellulitis Current Visit: Yes Status: Acute History Interval history: No new issues overnight. Patient complains of right upper extremity pain from previous trauma that was evaluated at [facility] with a CT scan that was found to be negative per patient. Hospitalist Physical - Constitutional Vitals: Temp Pulse Resp BP Pulse Ox 97.3 F L 81 20 133/75 94 05/16/17 07:46 05/16/17 07:46 05/16/17 07:46 05/16/17 07:46 05/16/17 07:46 General appearance: Present: no acute distress, well-nourished - EENT Eyes: Present: PERRL, EOM intact ENT: hearing intact, clear oral mucosa, dentition normal - Neck Neck: Present: supple, normal ROM - Respiratory Respiratory effort: normal Respiratory: bilateral: CTA - Cardiovascular Rhythm: regular Heart Sounds: Present: S1 & S2. Absent: gallop, rub - Extremities Extremities: no ischemia, No edema, Full ROM - Abdominal General gastrointestinal: soft, non-tender, non-distended, normal bowel sounds - Integumentary Integumentary: Present: clear, warm, dry - Neurologic Neurologic: CNII-XII intact, moves all extremities Results - Labs CBC & Chem 7: 05/15/17 04:47 05/15/17 04:47 Labs: Laboratory Last Values WBC 17.3 K/mm3 (4.5-11.0) H 05/15/17 04:47 RBC 3.52 M/mm3 (3.65-5.03) L 05/15/17 04:47 Hgb 9.6 gm/dl (11.8-15.2) L 05/15/17 04:47 Hct 28.5 % (35.5-45.6) L 05/15/17 04:47 MCV 81 fl (84-94) L 05/15/17 04:47 MCH 27 pg (28-32) L 05/15/17 04:47 MCHC 34 % (32-34) 05/15/17 04:47 RDW 16.1 % (13.2-15.2) H 05/15/17 04:47 Plt Count 596 K/mm3 (140-440) H 05/15/17 04:47 Lymph % (Auto) 8.8 % (13.4-35.0) L 05/15/17 04:47 [place] % (Auto) 6.5 % (0.0-7.3) 05/15/17 04:47 Eos % (Auto) 0.3 % (0.0-4.3) 05/15/17 04:47 Baso % (Auto) 0.3 % (0.0-1.8) 05/15/17 04:47 Lymph # 1.5 K/mm3 (1.2-5.4) 05/15/17 04:47 [place] # 1.1 K/mm3 (0.0-0.8) H 05/15/17 04:47 Eos # 0.0 K/mm3 (0.0-0.4) 05/15/17 04:47 Baso # 0.0 K/mm3 (0.0-0.1) 05/15/17 04:47 Seg Neutrophils % 84.1 % (40.0-70.0) H 05/15/17 04:47 Seg Neutrophils # 14.6 K/mm3 (1.8-7.7) H 05/15/17 04:47 PT 14.5 Sec. (12.2-14.9) 05/14/17 02:02 INR 1.07 (0.87-1.13) 05/14/17 02:02 APTT 33.9 Sec. (24.2-36.6) 05/14/17 02:02 D-Dimer 3031.44 ng/mlDDU (0-234) H 05/14/17 02:02 Heparin Anti-Xa Level < 0.10 U.I./ml (0.3-0.7) L 05/14/17 17:58 Sodium 132 mmol/L (137-145) L 05/15/17 04:47 Potassium 3.9 mmol/L (3.6-5.0) 05/15/17 04:47 Chloride 91.6 mmol/L (98-107) L 05/15/17 04:47 Carbon Dioxide 28 mmol/L (22-30) 05/15/17 04:47 Anion Gap 16 mmol/L 05/15/17 04:47 BUN 11 mg/dL (9-20) 05/15/17 04:47 Creatinine 0.5 mg/dL (0.8-1.5) L 05/15/17 04:47 Estimated GFR > 60 ml/min 05/15/17 04:47 BUN/Creatinine Ratio 22 % 05/15/17 04:47 Glucose 145 mg/dL (75-100) H 05/15/17 04:47 POC Glucose 192 (70-105) H 05/16/17 11:01 Lactic Acid 1.90 mmol/L (0.7-2.0) 05/14/17 02:02 Calcium 8.7 mg/dL (8.4-10.2) 05/15/17 04:47 Magnesium 1.70 mg/dL (1.7-2.3) 05/15/17 21:03 Total Bilirubin 0.60 mg/dL (0.1-1.2) 05/14/17 02:02 AST 45 units/L (5-40) H 05/14/17 02:02 ALT 62 units/L (7-56) H 05/14/17 02:02 Alkaline Phosphatase 164 units/L (35-129) H 05/14/17 02:02 Total Creatine Kinase 324 units/L (55-170) H 05/14/17 02:02 Total Protein 7.4 g/dL (6.3-8.2) 05/14/17 02:02 Albumin 2.7 g/dL (3.9-5) L 05/14/17 02:02 Albumin/Globulin Ratio 0.6 % 05/14/17 02:02 Blood Type O POSITIVE 05/14/17 13:29 Antibody Screen Negative 05/14/17 13:29
[2017-05-16 11:32] LABS: Basophils % (Auto) 0.3 % (0.0-1.8); Eosinophils % (Auto) 0.3 % (0.0-4.3); Hematocrit 31.2 % (35.5-45.6); Hemoglobin 10.1 gm/dl (11.8-15.2); Lymphocytes # (Auto) 1.8 K/mm3 (1.2-5.4); Lymphocytes % (Auto) 10.8 % (13.4-35.0); Mean Corpuscular HGB Conc 32 % (32-34); Mean Corpuscular Hemoglobin 27 pg (28-32); Mean Corpuscular Volume 82 fl (84-94); Monocytes # (Auto) 0.9 K/mm3 (0.0-0.8); Monocytes % (Auto) 5.7 % (0.0-7.3); Platelet Count 724 K/mm3 (140-440)
[2017-05-16 12:21] LABS: BUN/Creatinine Ratio 22; Blood Urea Nitrogen 13 mg/dL (9-20); Calcium 8.4 mg/dL (8.4-10.2); Hemolysis Index 3
[2017-05-16] MEDS: NACL 0.9% 1000 ML 1,000 ML IV SCH (14:13)
[2017-05-17] MEDS: HumuLIN R SUB-Q SCH ×4 (00:49→16:33)
[2017-05-17] MEDS: VANCOMYCIN 1,500 MG in NACL 0.9% 500 ML 500 ML IV SCH ×2 (02:38→14:24)
[2017-05-17] MEDS: MORPHINE IV PRN ×2 (03:59→09:57)
[2017-05-17] MEDS: ZOSYN/NS 4.5GM/100ML 4.5 GM/100 ML VIAL IV SCH ×2 (05:27→14:23)
[2017-05-17] MEDS: ELIQUIS PO SCH (09:56)
[2017-05-17] MEDS: NEURONTIN PO SCH (09:56)
[2017-05-17] MEDS: GLUCOPHAGE PO SCH ×2 (09:57→16:33)
[2017-05-17] MEDS: SODIUM CHLORIDE FLUSH SYRINGE 10 ML IV SCH (09:57)
[2017-05-17 16:50] VITALS: BP 153/76
== END 2017-05-17 18:30 | disposition home or self-care (01) | DRG 872 ==
LOC: ED 00:22 → 3A 12:48
PROVIDERS: ADMIT Hospitalist; ATTEND Hospitalist
DX: A41.9 Sepsis, unspecified organism (principal); L03.116 Cellulitis of left lower limb; I80.02 Phlebitis and thrombophlebitis of superficial vessels of left lower extremity; E11.9 Type 2 diabetes mellitus without complications; I10 Essential (primary) hypertension; E66.01 Morbid (severe) obesity due to excess calories; Z79.899 Other long term (current) drug therapy; Z79.2 Long term (current) use of antibiotics; Z88.6 Allergy status to analgesic agent; Z68.35 Body mass index [BMI] 35.0-35.9, adult
CPT/HCPCS: 36415; 74177; 80048; 80053; 82140; 82550; 82962; 83735; 85025; 85379; 85520; 85610; 85730; 86403; 86850; 86900; 86901; 87040; 87185; 87186; 93970; 96365; 96367; 96375; 96376; J1170; J1644; J1650; J1815; J2270; J2543; J3010; J3370; J7030; J7040; J7050; Q9967